=== PATIENT | male | born 1995 | race Caucasian/White ===

== ENCOUNTER 2017-05-06 20:24 | Emergency (ER) | payer OTHER, BC ==
[~2017-05-06] VITALS: Ht 157.5 cm; Wt 97.5 kg
[2017-05-06 20:28] VITALS: BP 142/75; PULSE 78; RESP 20; TEMP 98.5; O2SAT 98
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
[2017-05-06] MEDS ORDERED: IBUP-232 PO (21:35)
[2017-05-06] MEDS ORDERED: CYCL10TA PO (21:35)
[2017-05-06] MEDS ORDERED: IBUPROFEN 600 MG TAB PO ONE (21:45)
== END 2017-05-06 22:10 | disposition home or self-care (01) ==
LOC: NEPE 20:24
DX: S39.012A Strain of muscle, fascia and tendon of lower back, initial encounter (principal); M62.838 Other muscle spasm; V89.2XXA Person injured in unspecified motor-vehicle accident, traffic, initial encounter
CPT/HCPCS: 72050; 72110; 99283